=== PATIENT | male | born 1985 | race Caucasian/White ===

== ENCOUNTER 2021-07-20 21:22 | Emergency (ER) | payer MEDICAID ==
[~2021-07-20] VITALS: Ht 172.7 cm; Wt 173.0 kg
[2021-07-20 21:35] VITALS: BP 141/92
[2021-07-20] MEDS ORDERED: LORazepam 1 MG tablet PO ONE (22:35)
== END 2021-07-20 23:17 | disposition home or self-care (01) ==
LOC: EDBD 21:24 → ER 21:24
DX: S00.12XA Contusion of left eyelid and periocular area, initial encounter (principal); F15.90 Other stimulant use, unspecified, uncomplicated; Z59.00 Homelessness unspecified; X58.XXXA Exposure to other specified factors, initial encounter; Y93.89 Activity, other specified; Y92.89 Other specified places as the place of occurrence of the external cause; Y99.8 Other external cause status; F20.9 Schizophrenia, unspecified
CPT/HCPCS: 99283

== ENCOUNTER 2021-07-24 04:06 | Emergency (ER) | payer MEDICAID ==
[~2021-07-24] VITALS: Ht 172.7 cm; Wt 122.0 kg
[2021-07-24 06:20] VITALS: BP 145/85
== END 2021-07-24 06:22 | disposition home or self-care (01) ==
LOC: ER 04:07
DX: S80.12XA Contusion of left lower leg, initial encounter (principal); M79.662 Pain in left lower leg; F15.90 Other stimulant use, unspecified, uncomplicated; F20.9 Schizophrenia, unspecified; F19.90 Other psychoactive substance use, unspecified, uncomplicated; Z72.89 Other problems related to lifestyle; Z59.00 Homelessness unspecified; X58.XXXA Exposure to other specified factors, initial encounter; Y93.01 Activity, walking, marching and hiking; Y92.89 Other specified places as the place of occurrence of the external cause; Y99.8 Other external cause status
CPT/HCPCS: 73590; 99283

== ENCOUNTER 2021-08-07 19:42 | Emergency (ER) | payer MEDICAID ==
[~2021-08-07] VITALS: Ht 172.7 cm; Wt 126.4 kg
[2021-08-07 19:52] VITALS: BP 129/94
[2021-08-07] MEDS ORDERED: BENZ-38 PO (20:33)
== END 2021-08-07 21:01 | disposition home or self-care (01) ==
LOC: ER 19:43
DX: R05.9 Cough, unspecified (principal); R50.9 Fever, unspecified; R07.9 Chest pain, unspecified; Z20.822 Contact with and (suspected) exposure to COVID-19; F25.9 Schizoaffective disorder, unspecified; F17.210 Nicotine dependence, cigarettes, uncomplicated; F15.10 Other stimulant abuse, uncomplicated; Z59.00 Homelessness unspecified
CPT/HCPCS: 71045; 87635; 99284; C9803

== ENCOUNTER 2021-08-22 19:16 | Emergency (ER) | payer MEDICAID ==
[~2021-08-22] VITALS: Ht 172.7 cm; Wt 122.2 kg
[~2021-08-22 19:16] MED LIST: BENZ-38 PO
[2021-08-22 19:32] VITALS: BP 177/11
[2021-08-22] MEDS ORDERED: aripiprazole 400mg suspension ER syringe IM ONE (20:20)
== END 2021-08-22 21:16 | disposition home or self-care (01) ==
LOC: ER 19:17
DX: Z00.8 Encounter for other general examination (principal); F15.90 Other stimulant use, unspecified, uncomplicated; F19.90 Other psychoactive substance use, unspecified, uncomplicated; Z72.89 Other problems related to lifestyle; Z59.00 Homelessness unspecified; Z79.899 Other long term (current) drug therapy
CPT/HCPCS: 96372; 99283